=== PATIENT | female | born 1970 | race Caucasian/White ===

== ENCOUNTER 2022-07-24 09:40 | Outpatient (CLI) | payer BC ==
[2022-07-24 11:30] LABS: Hemoglobin 14.2 g/dL (12.0-15.5); Mean Corpuscular HGB CONC 34.6 g/dL (32.0-36.0); Mean Corpuscular Hemoglobin 32.4 pg (27.0-33.0); Mean Corpuscular Volume 93.6 fl (81.6-98.3); Mean Platelet Volume 10.5 fl (7.4-10.4); Platelet Count 250 10x3/uL (150-450); RBC Distribution Width 13.7 % (11.5-14.5); Red Blood Cell (RBC) Count 4.38 10x6/uL (3.90-5.03)
[2022-07-24 12:05] LABS: Anion Gap 14 mmol/L (10-20); BUN (Urea Nitrogen) 12 mg/dL (9.8-20.1); Calc. Creatinine Clearance 0 mL/min (70-130); Calcium 8.9 mg/dL (7.8-10.44); Carbon Dioxide 23 mmol/L (22-29); Chloride 105 mmol/L (98-107); Estimated GFR 89; Glucose 85 mg/dL (70-105); Potassium 4.2 mmol/L (3.5-5.1); Sodium 138 mmol/L (136-145)
== END 2022-07-24 09:41 | disposition home or self-care (01) ==
LOC: CSHLAB 09:40
PROVIDERS: ATTEND Podiatrist Foot & Ankle Surgery
DX: Z01.818 Encounter for other preprocedural examination (principal); Z20.822 Contact with and (suspected) exposure to COVID-19; M72.2 Plantar fascial fibromatosis
CPT/HCPCS: 80048; 85027; 87811; 93005; 93010

== ENCOUNTER 2022-07-27 09:58 | Day surgery (SDC) | payer BC ==
[2022-07-24 11:43] VITALS: BMI 26.6
[2022-07-27] MEDS ORDERED: Bupivacaine PF 0.5% 30 ML VIAL ONE (11:46)
[2022-07-27] MEDS ORDERED: Neomycin-Polymyxin 1 ML AMP ONE (11:46)
[2022-07-27] MEDS ORDERED: CEFAZOLIN 2 GM VIAL ONE (11:50)
[2022-07-27] MEDS ORDERED: PROPOFOL 20 ML ONE (11:58)
[2022-07-27] MEDS ORDERED: Fentanyl 100 MCG/2 ML VIAL ONE (11:58)
[2022-07-27] MEDS ORDERED: Midazolam HCl 2 mg/2 ml Vial ONE (11:59)
[2022-07-27] MEDS ORDERED: Ondansetron PF 4 MG/2 ML Vial ONE (12:37)
== END 2022-07-27 14:15 | disposition home or self-care (01) ==
LOC: CSHSDC 09:58
PROVIDERS: ATTEND Podiatrist Foot & Ankle Surgery
PROC: 0J8R0ZZ Division of Left Foot Subcutaneous Tissue and Fascia, Open Approach (ICD-10-PCS; principal; 2022-07-27)
DX: M72.2 Plantar fascial fibromatosis (principal); M77.32 Calcaneal spur, left foot; Z79.2 Long term (current) use of antibiotics; Z79.899 Other long term (current) drug therapy; Z20.822 Contact with and (suspected) exposure to COVID-19
CPT/HCPCS: J0690; J2250; J2405; J2704; J3010; S0020